=== PATIENT | male | born 1935 | race Caucasian/White ===

== ENCOUNTER 2017-04-16 12:37 | Emergency (ER) | payer OTHER ==
[2017-04-16 12:48] VITALS: RESP 16
[2017-04-16] MEDS ORDERED: NS 1,000 ML IV ONE (12:59)
--- NOTE | 2017-04-16 13:04 | EDPHY ---
H & P Stated Complaint: Dizziness when bending over, tingling in bilat leg with weakness. Source: Patient - Personal History Current Tetanus Diphtheria and Acellular Pertussis (TDAP): Yes Tetanus Vaccine Date: within 10 years - Medical/Surgical History Hx Asthma: No Hx Chronic Respiratory Disease: No Hx Diabetes: No Hx Cardiac Disease: No Hx Renal Disease: No Hx Cirrhosis: No Hx Alcoholism: No Hx HIV/AIDS: No Hx Splenectomy or Spleen Trauma: No Other PMH: Kidney stones LITHOTRYPSY, diverticulitis, cholecystectomy, knee replacement, [place], BPH, prostate CA, HTN, HYPERLIPIDS, GERD, PNA 04/04 - Social History Smoking Status: Former smoker Time Seen by Provider: 04/16/17 12:42 HPI/ROS: CHIEF COMPLAINT: Dizziness History by patient HISTORY OF PRESENT ILLNESS: 79-year-old male with a history of hypertension who just completed a course of azithromycin for pneumonia presents complaining of acute onset of dizziness which he describes is everything spinning around and bilateral leg weakness. He says the dizziness comes on when he bends over and then stands up. It happened twice in the past 2 days after he took a shower and then was leaning over and wiping down the shower. Today it happened while he was in [facility]. His said he didn't look well when he got home from the grocery store. The dizziness resolved fairly quickly, but he says the leg weakness was more persistent and he had to sit down and he felt somewhat short of breath with it. He denies any associated palpitations or chest pain. He denies any nausea, vomiting or diaphoresis. He states the fever and cough have resolved since he has been on the azithromycin. Three did days ago he did developed acute onset watery, nonbloody diarrhea associated with some tenesmus. He had 1 episode of watery nonbloody diarrhea today. He says he has been eating and drinking like usual. There is no associated headache or back pain. There is no focal numbness or weakness. There is no visual difficulties. There has been no syncope. He takes a baby ASA every night, last dose last night. REVIEW OF SYSTEMS: As in HPI, and all other systems reviewed and are negative (Maria Corcoran) - Physical Exam Exam: General Appearance: Alert, younger appearing than stated age, speaking full sentences. Head: normocephalic, atraumatic Eyes: Pupils equal and round, reactive to light, no pallor or injection. Extraocular movements intact, no nystagmus Mouth: Mucous membranes moist. Respiratory: Normal, effort, lungs are clear to auscultation. No wheezes, rales or rhonchi. No chest wall tenderness Cardiovascular: Regular rate and rhythm. S1, S2, no murmurs, gallops or rubs appreciated, radial pulses 2+ and equal bilaterally Gastrointestinal: Abdomen is soft and nontender, no masses, bowel sounds normal. Back: No CVA tenderness, no bony tenderness Neurological: Awake, alert and oriented x 3, no pronator drift, normal gait, motor is 5/5 equal bilaterally in the lower extremities, sensation is intact throughout, finger to nose and heel to ramon intact Skin: Warm and dry, no rashes. Musculoskeletal: No deformities or tenderness. Full range of motion Extremities: no edema, no tenderness, DP2+ bilat, PT 2+ bilat Psychiatric: Patient has normal affect, there is no agitation. (Maria Corcoran) Constitutional: Initial Vital Signs Temperature (C) 36.4 C 04/16/17 12:40 Heart Rate 74 04/16/17 12:40 Respiratory Rate 16 04/16/17 12:40 Blood Pressure 155/75 H 04/16/17 12:40 O2 Sat (%) 95 04/16/17 12:40 O2 Delivery Mode Room Air Allergies/Adverse Reactions: No Known Allergies Allergy (Verified 04/16/17 12:48) Home Medications: Medication Instructions Recorded Rosuvastatin Calcium [Crestor 20mg 03/27/14 (RX)] Terazosin HCl [Hytrin 5 MG (*)] 03/27/14 amLODIPine BESYLATE [Norvasc 10 mg 03/27/14 (*)] Aspirin EC [Aspirin EC 81 mg (OTC)] 04/12/14 Centrum Silver Tablet 04/12/14 Uyqvygfmwd-Xyrhchupyil-PRZ Tab 04/12/14 [place] 3 Fish Oil Softgel 04/12/14 Medical Decision Making - Diagnostics EKG Interpretation: Normal sinus rhythm at a rate of 63 with normal axis, normal intervals and no ST segment abnormalities suggestive of acute ischemia. Impression: no acute ischemia. (Maria Corcoran) Imaging Results: Imaging Impressions Chest X-Ray 04/16/17 13:00 Impression: COPD and mild peribronchial thickening, but no focal infiltrate or acute intrathoracic abnormality. ED Course/Re-evaluation: 81-year-old male with history of hypertension presents with 3 episodes of dizziness, leg heaviness and shortness of breath which resolved quickly. The leg weakness was bilateral and symptoms are inconsistent with stroke. EKG showed no evidence of acute arrhythmia or ischemia. Patient was placed on the quality assurance monitor remained in normal sinus rhythm during his emergency department stay. I was concerned about dehydration related to his recent diarrhea. He was given a L of normal saline. Labs are unremarkable. There is no evidence of anemia. First troponin was negative. Chest x-ray is unremarkable. I think the patient's symptoms are likely related to his recent illness and orthostatic hypotension however the shortness of breath and leg weakness are slightly atypical for this and therefore we will repeat a 2nd troponin to rule out ACS. This is negative I think the patient may safely be discharged for close follow-up with his primary care physician for consideration of further cardiac workup. I discussed this plan as well as return precautions with the patient and his . I will transfer care to Dr. Jeri Danielle pending results of 2nd troponin. (Maria Corcoran) Other Provider: I assumed care of this patient from Dr. Nina at 3:00 p.m.. At that time a 2nd troponin was scheduled for four p.m.. 2nd troponin is normal. At 4:45 p.m. The patient tells me that he is feeling "great". He does not feel lightheaded or dizzy. He is not having chest pain. He is not short of breath. He is comfortable returning home and will follow up with his primary care physician, Dr. Arias. Danger signs were reviewed with the patient and his . He understands that it is not entirely clear what has been causing his symptoms. A cardiac etiology has not been discovered. I am giving him information about near syncope and also about vertigo. (Jeri Danielle) - Data Points Laboratory Results: Laboratory Results 04/16/17 13:13 04/16/17 13:13 04/16/17 04/16/17 04/16/17 16:10 13:13 13:13 WBC 6.92 10^3/uL 10^3/uL (3.80-9.50) RBC 4.50 10^6/uL 10^6/uL (4.40-6.38) Hgb 14.1 g/dL g/dL (13.7-17.5) Hct 40.5 % % (40.0-51.0) MCV 90.0 fL fL (81.5-99.8) MCH 31.3 pg pg (27.9-34.1) MCHC 34.8 g/dL g/dL (32.4-36.7) RDW 12.5 % % (11.5-15.2) Plt Count 204 10^3/uL 10^3/uL (150-400) MPV 8.9 fL fL (8.7-11.7) Neut % (Auto) 62.5 % % (39.3-74.2) Lymph % (Auto) 29.2 % % (15.0-45.0) [place] % (Auto) 6.9 % % (4.5-13.0) Eos % (Auto) 0.9 % % (0.6-7.6) Baso % (Auto) 0.4 % % (0.3-1.7) Nucleat RBC Rel Count 0.0 % % (0.0-0.2) Absolute Neuts (auto) 4.32 10^3/uL 10^3/uL (1.70-6.50) Absolute Lymphs (auto) 2.02 10^3/uL 10^3/uL (1.00-3.00) Absolute Monos (auto) 0.48 10^3/uL 10^3/uL (0.30-0.80) Absolute Eos (auto) 0.06 10^3/uL 10^3/uL (0.03-0.40) Absolute Basos (auto) 0.03 10^3/uL 10^3/uL (0.02-0.10) Absolute Nucleated RBC 0.00 10^3/uL 10^3/uL (0-0.01) Immature Gran % 0.1 % % (0.0-1.1) Immature Gran # 0.01 10^3/uL 10^3/uL (0.00-0.10) Sodium 141 mEq/L mEq/L (135-145) Potassium 4.1 mEq/L mEq/L (3.5-5.2) Chloride 111 mEq/L H mEq/L (97-110) Carbon Dioxide 22 mEq/l mEq/l (22-31) Anion Gap 8 mEq/L mEq/L (8-16) BUN 21 mg/dL mg/dL (7-23) Creatinine 1.3 mg/dL mg/dL (0.7-1.3) Estimated GFR 53 Glucose 99 mg/dL mg/dL (70-100) Calcium 9.0 mg/dL mg/dL (8.5-10.4) Magnesium 1.8 mg/dL mg/dL (1.6-2.3) Troponin I < 0.012 ng/mL ng/mL < 0.012 ng/mL ng/mL (0.000-0.034) (0.000-0.034) Medications Given: Discontinued Medications Sodium Chloride (Ns) 1,000 mls @ 0 mls/hr IV EDNOW ONE; Wide Open PRN Reason: Protocol Stop: 04/16/17 13:00 Last Admin: 04/16/17 13:11 Dose: 1,000 mls Departure - Departure Disposition: Home, Routine, Self-Care Clinical Impression: Pre-syncope Condition: Good Instructions: Near Syncope (ED), Vertigo (ED) Referrals: Sylvain Arias MD [Primary Care Provider] - As per Instructions
--- NOTE | 2017-04-16 13:08 | CPEKG ---
Heart Rate: 63 RR Interval: 952 P-R Interval: 176 QRSD Interval: 90 QT Interval: 400 QTC Interval: 410 P [place]: 23 QRS [place]: 18 T Wave [place]: 19 EKG Severity - OTHERWISE NORMAL ECG - EKG Impression: SINUS RHYTHM EKG Impression: LOW VOLTAGE IN FRONTAL LEADS Electronically Signed By: Jeri Danielle 16-Apr-2017 21:02:45
[2017-04-16 13:18] LABS: PLATELET COUNT 204 10^3/uL (150-400)
[2017-04-16 15:09] VITALS: TEMP 97.7
[2017-04-16 16:57] VITALS: BP 139/77; PULSE 61; O2SAT 95
== END 2017-04-16 16:56 | disposition home or self-care (01) ==
LOC: CED 12:37
DX: R55 Syncope and collapse (principal); I10 Essential (primary) hypertension; E86.9 Volume depletion, unspecified; Z85.46 Personal history of malignant neoplasm of prostate; Z79.82 Long term (current) use of aspirin; Z87.891 Personal history of nicotine dependence
CPT/HCPCS: 71046-PO; 80048-PO; 83735-PO; 84484-PO; 85025-PO